=== PATIENT | male | born 1960 | race Caucasian/White ===

== ENCOUNTER 2020-08-24 08:56 | Outpatient (REF) | payer OTHER, SELFPAY ==
--- NOTE | 2020-08-24 09:04 | FL_ITS ---
EXAMINATION: XR GI SERIES CLINICAL INFORMATION: History of hiatal hernia. Difficulty swallowing. COMPARISON: Previous barium swallows, including 12/02/2018. CT abdomen 06/21/2018. TECHNIQUE: Upper GI with air. FINDINGS: The esophagus demonstrates normal caliber, with normal motility. No mass or mucosal lesions are seen. The gastroesophageal junction is rotated to the left. There is apparent smooth narrowing of the GE junction region. There appears to be a significant hiatal hernia, with majority of the stomach appearing to be herniated into the chest, with the findings suggesting some degree of rotation. There is contrast extension into the small bowel without evidence of gastric outlet obstruction. No mass or mucosal lesions are seen. FLUOROSCOPY TIME: 2 minutes. DOSE AREA PRODUCT: 40.9 uGy-m2 (microgray-meter squared). FL/FL upper GI series IMPRESSION: 1. There appears be a prominent hiatal hernia, with majority of stomach appearing to be herniated in the chest, with some degree of rotation suspected. Recommend further evaluation with CT scan. 2. Apparent narrowing of the distal esophagus at the gastroesophageal junction, which could be related to slightly redundant GE junction. 3. No evidence of gastric outlet obstruction.
== END 2020-08-24 08:57 | disposition home or self-care (01) ==
LOC: HO.XRAY 08:56
PROVIDERS: PCP Internal Medicine; Visit Provider Internal Medicine
DX: K40.11 Bilateral inguinal hernia, with gangrene, recurrent (principal); R13.10 Dysphagia, unspecified
CPT/HCPCS: 74240

== ENCOUNTER 2020-09-05 13:46 | Outpatient (REF) | payer OTHER, SELFPAY ==
--- NOTE | 2020-09-05 13:47 | CT_ITS ---
EXAMINATION: CT CHEST WITHOUT CONTRAST CLINICAL INFORMATION: Post procedure. COMPARISON: Chest x-ray and rib series of 05/25/2019. TECHNIQUE: Multidetector volumetric CT imaging of the chest was done. Axial MIP volume rendering provided. Sagittal and coronal reformatted images were obtained. This CT examination was performed using dose optimization techniques as appropriate, variously including the following: *Automated exposure control. *Adjustment of mA and/or kV according to patient size (this includes techniques or standardized protocols for targeted exams where dose is matched to indication/reason for exam; i.e. extremities or head). *Use of iterative reconstruction technique. DLP: 285 mGy-cm FINDINGS: LUNGS: Central airways are patent. No significant bronchial wall thickening is seen. No confluent parenchymal disease. There are a few scattered sub-4 mm densities present as well as calcified granuloma. There is compressive atelectasis/scarring related to a large hiatal hernia in the left lower lobe. MEDIASTINUM: There appears to be a nodule involving the upper pole of the right thyroid lobe. Heart normal size. No pericardial effusion. Coronary artery calcification is seen. No thoracic aortic aneurysm. No mediastinal or hilar lymphadenopathy. There is a large hiatal hernia present containing stomach and body of pancreas. PLEURA: There is no pleural effusion. No pleural mass or thickening. AXILLA: No lymphadenopathy. UPPER ABDOMEN: There is a 10 x 9 cm left renal upper pole cyst. Large hiatal hernia containing fundus and portion of body of stomach and body of pancreas. OSSEOUS STRUCTURES: No suspicious destructive bony lesions identified. Old healed right 9th and 10th rib fractures. 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 CT/CT chest wo con IMPRESSION: 1. Old granulomatous disease. 2. Large hiatal hernia containing fundus and body of stomach as well as pancreatic body. 3. Large left renal cyst.
== END 2020-09-05 13:47 | disposition home or self-care (01) ==
LOC: HO.CT 13:46
PROVIDERS: PCP Internal Medicine; Visit Provider Surgery
DX: Z87.19 Personal history of other diseases of the digestive system (principal); Z98.890 Other specified postprocedural states
CPT/HCPCS: 71250

== ENCOUNTER → 2020-09-14 09:44 | Outpatient (BNVA) | payer OTHER, SELFPAY | PROVIDERS: PCP Internal Medicine; Referring Provider Internal Medicine; Visit Provider Surgery | DX: Z76.89 Persons encountering health services in other specified circumstances (principal) ==

== ENCOUNTER → 2020-10-19 09:17 | Outpatient (BNVA) | payer OTHER, SELFPAY | PROVIDERS: PCP Internal Medicine; Visit Provider Surgery | DX: Z76.89 Persons encountering health services in other specified circumstances (principal) ==

== ENCOUNTER 2020-11-02 08:59 | Outpatient (REF) | payer OTHER, SELFPAY ==
--- NOTE | 2020-11-02 09:01 | FL_ITS ---
PROCEDURE: FL BARIUM SWALLOW CLINICAL INFORMATION: Diaphragmatic hernia with obstruction. Post surgery. COMPARISON: None TECHNIQUE: Barium swallow examination is performed using fluoroscopic evaluation in addition to multiple fluoroscopic spot views. The patient is imaged both upright and prone and using both thick and thin sulfate along with effervescent granules. Fluoroscopy time: 1.3 minutes DAP: 13.0 Gycm2 Images: 46 FINDINGS: Following oral administration of thick barium and barium-coated turkey there is normal antegrade flow of bolus from the oral cavity through the pharynx, esophagus into stomach. There are postsurgical changes seen at the GE junction. On placing patient prone and oral administration of thin barium there is normal distention of GE junction. No intrinsic or extrinsic esophageal mass effect seen. On placing patient supine there is no gastroesophageal reflux or hiatal hernia. FL/FL barium swallow IMPRESSION: Postsurgical changes at the GE junction following hiatal hernia repair. There is no gastroesophageal reflux or hiatal hernia seen on this exam. The esophagus appears unremarkable.
== END 2020-11-02 09:00 | disposition home or self-care (01) ==
LOC: HO.XRAY 08:59
PROVIDERS: Visit Provider Surgery
DX: K44.0 Diaphragmatic hernia with obstruction, without gangrene (principal)
CPT/HCPCS: 74220

== ENCOUNTER → 2020-11-09 09:12 | Outpatient (BNVA) | payer OTHER, SELFPAY | PROVIDERS: PCP Internal Medicine; Visit Provider Surgery ==